=== PATIENT | female | born 1935 | race Caucasian/White ===

== ENCOUNTER 2016-12-02 07:43 | Inpatient (IN) | payer OTHER ==
[~2016-12-02] VITALS: Ht 165.1 cm; Wt 65.2 kg
[2016-12-02 09:14] LABS: EOSINOPHIL (%) 0.2 % (0-5); HEMATOCRIT 43.4 % (36.0-46.0); IMMATURE GRANULOCYTE (%) 0.2 % (0.0-0.7); IMMATURE GRANULOCYTE COUNT 0.2 K/uL; LYMPHOCYTE COUNT 1.2 K/uL (1.0-2.8); MCH 29.4 PG (29.0-34.0); MCHC 33.4 G/DL (30.0-36.0); MEAN PLAT.VOLUME 10.5 uM^3 (9.5-12.4); MONOCYTE (%) 5.8 % (3-12); MONOCYTE COUNT 0.6 K/uL (0-0.8); NEUTROPHIL (%) 80.4 % (45-76); NEUTROPHIL COUNT 7.6 K/uL (1.8-6.4); PLATELET COUNT 183 K/uL (156-360); RBC DIS.WIDTH-CV 12.9 % (11.8-14.6); RED BLOOD COUNT 4.93 M/uL (3.80-5.20); WHITE BLOOD COUNT 9.5 K/uL (4.1-10.2)
[2016-12-02 09:24] LABS: PROTHROMBIN TIME 10.5 (9.2-11.2); PTT 25.7 (25-32)
[2016-12-02 09:25] LABS: CHLORIDE 107 mEq/L (99-109); SODIUM 144 mEq/L (136-147)
[2016-12-02 09:27] LABS: GLUCOSE 137 mg/dL (70-99)
[2016-12-02 09:29] LABS: ANION GAP 10 MEQ/L (2-14); TOTAL BILIRUBIN 1.1 mg/dL (0.0-1.0)
[2016-12-02 09:31] LABS: ALKALINE PHOSPHATASE 74 IU/L (3-129); GFR ESTIMATE (CALCULATED) > 59 mL/min/
[2016-12-02 09:32] LABS: UREA NITROGEN (BUN) 28 mg/dL (9-23)
[2016-12-02 09:35] LABS: TROP-I INTERPRETATION NEGATIVE; TROPONIN-I < 0.01 ng/mL (0.0-0.30)
[2016-12-02 09:46] LABS: LIPASE > 4220 U/L (1.0-51.0)
[2016-12-02] MEDS ORDERED: PRINIVIL10 MG PO (11:12)
[2016-12-02] MEDS ORDERED: CELEBREX200 MG PO (11:13)
[2016-12-02] MEDS ORDERED: LORAZEPAM0.5 MG PO (11:13)
[2016-12-02] MEDS ORDERED: LIPITOR10 MG PO (11:13)
[2016-12-02] MEDS ORDERED: NEXIUM20 MG PO (11:14)
[2016-12-02] MEDS ORDERED: CALCIUM 500 MG1 EACH PO (11:14)
[2016-12-02] MEDS ORDERED: CLONAZEPAM1 MG PO (11:15)
[2016-12-02] MEDS ORDERED: CALCIUM 500 +1 EACH PO (12:19)
[2016-12-02] MEDS ORDERED: LORAZEPAM1 MG PO (12:20)
[2016-12-02] MEDS ORDERED: PRINIVIL20 MG PO (12:20)
[2016-12-02] MEDS ORDERED: MIRALAX255 GM PO (12:21)
[2016-12-02 20:00] VITALS: BP 156/64
[2016-12-02 23:51] VITALS: BP 133/67
[2016-12-03 04:00] VITALS: BP 130/66
[2016-12-03 06:39] LABS: HEMATOCRIT 44.4 % (36.0-46.0); MCH 29.8 PG (29.0-34.0); MCHC 32.7 G/DL (30.0-36.0); MCV 91.2 FL (83-99); MEAN PLAT.VOLUME 10.9 uM^3 (9.5-12.4); PLATELET COUNT 178 K/uL (156-360); RBC DIS.WIDTH-CV 13.4 % (11.8-14.6); RBC DIS.WIDTH-SD 44.1 % (39-53); RED BLOOD COUNT 4.87 M/uL (3.80-5.20); WHITE BLOOD COUNT 10.1 K/uL (4.1-10.2)
[2016-12-03 07:13] LABS: ALKALINE PHOSPHATASE 63 IU/L (3-129); ANION GAP 9 MEQ/L (2-14); CHLORIDE 107 MEQ/L (99-109); GFR ESTIMATE (CALCULATED) > 59 mL/min/; GLUCOSE 103 mg/dL (70-99); LIPASE 1519 U/L (1.0-51.0); POTASSIUM 3.5 MEQ/L (3.7-5.4); SAMPLE HEMOLYSIS CHECK 0; SAMPLE ICTERIC CHECK 0; SAMPLE LIPEMIA CHECK 0; SODIUM 145 MEQ/L (136-147); TOTAL BILIRUBIN 1.7 MG/DL (0.0-1.0); UREA NITROGEN (BUN) 27 mg/dL (9-23)
[2016-12-03 07:40] VITALS: BP 145/67
[2016-12-03 12:10] VITALS: BP 130/61
[2016-12-03 16:23] VITALS: BP 136/71
[2016-12-03 20:15] VITALS: BP 147/70
[2016-12-04] VITALS (7 sets, daily range): BP systolic 141–171; BP diastolic 66–78
[2016-12-04 08:33] LABS: HEMATOCRIT 40.8 % (36.0-46.0); MCH 30.3 PG (29.0-34.0); MCHC 33.3 G/DL (30.0-36.0); MCV 90.9 FL (83-99); MEAN PLAT.VOLUME 11.1 uM^3 (9.5-12.4); PLATELET COUNT 166 K/uL (156-360); RBC DIS.WIDTH-CV 13.1 % (11.8-14.6); RBC DIS.WIDTH-SD 43.6 % (39-53); RED BLOOD COUNT 4.49 M/uL (3.80-5.20); WHITE BLOOD COUNT 8.8 K/uL (4.1-10.2)
[2016-12-04 08:47] LABS: INTER. NORMALIZED RATIO 1.1; PROTHROMBIN TIME 10.7 (9.2-11.2); PTT 29.9 (25-32)
[2016-12-04 08:51] LABS: BASE EXCESS 0.1 mEq/L (-3 to +3); BICARBONATE 25.4 mEq/L (22-26); CARBOXY HGB 2.4 % (0-5); METHEMOGLOBIN 1.6 % (0-1.5); PCO2 43 mm Hg (35-45); PO2 74 mm Hg (80-100); pH 7.38 (7.35-7.45)
[2016-12-04 08:52] LABS: COMMENTS - BLOOD GASES A+C+; DEVICE NC; O2 FLOW 2 L/MIN; SITE RR; TOTAL RESP RATE 20 resp/min
[2016-12-04 09:33] LABS: ALKALINE PHOSPHATASE 55 IU/L (3-129); ANION GAP 9 MEQ/L (2-14); CHLORIDE 111 MEQ/L (99-109); GFR ESTIMATE (CALCULATED) > 59 mL/min/; POTASSIUM 3.7 MEQ/L (3.7-5.4); SAMPLE HEMOLYSIS CHECK 0; SAMPLE ICTERIC CHECK 0; SAMPLE LIPEMIA CHECK 0; SODIUM 147 MEQ/L (136-147); TOTAL BILIRUBIN 1.5 MG/DL (0.0-1.0); UREA NITROGEN (BUN) 22 mg/dL (9-23)
[2016-12-04 09:34] LABS: GLUCOSE 68 mg/dL (70-99)
[2016-12-05 04:00] VITALS: BP 170/71
[2016-12-05 06:53] LABS: HEMATOCRIT 34.3 % (36.0-46.0); MCH 29.7 PG (29.0-34.0); MCHC 33.5 G/DL (30.0-36.0); MCV 88.6 FL (83-99); MEAN PLAT.VOLUME 11.6 uM^3 (9.5-12.4); PLATELET COUNT 141 K/uL (156-360); RBC DIS.WIDTH-CV 12.9 % (11.8-14.6); RBC DIS.WIDTH-SD 41.3 % (39-53); RED BLOOD COUNT 3.87 M/uL (3.80-5.20); WHITE BLOOD COUNT 6.9 K/uL (4.1-10.2)
[2016-12-05 07:11] LABS: ALKALINE PHOSPHATASE 47 IU/L (3-129); ANION GAP 7 MEQ/L (2-14); CHLORIDE 107 MEQ/L (99-109); GFR ESTIMATE (CALCULATED) > 59 mL/min/; LIPASE 97 U/L (1.0-51.0); SAMPLE HEMOLYSIS CHECK 0; SAMPLE ICTERIC CHECK 0; SAMPLE LIPEMIA CHECK 0; SODIUM 142 MEQ/L (136-147); TOTAL BILIRUBIN 1.2 MG/DL (0.0-1.0); UREA NITROGEN (BUN) 16 mg/dL (9-23)
[2016-12-05 07:16] LABS: GLUCOSE 97 mg/dL (70-99); POTASSIUM 2.8 MEQ/L (3.7-5.4)
[2016-12-05 08:01] VITALS: BP 191/76
[2016-12-05 11:38] VITALS: BP 176/76
== END 2016-12-05 16:30 | disposition home or self-care (01) | DRG 440 ==
LOC: EME → EDBD 07:43 → EME 07:43 → EDOF 12:09 → 5SOUTH 12:09 → EDOF 12:29 → 5SOUTH 18:51
PROVIDERS: Emergency Medicine; Internal Medicine; Internal Medicine Gastroenterology; Physician Assistant
DX: K85.90 Acute pancreatitis without necrosis or infection, unspecified (principal); K81.1 Chronic cholecystitis; K76.0 Fatty (change of) liver, not elsewhere classified; E87.6 Hypokalemia; R74.0 Nonspecific elevation of levels of transaminase and lactic acid dehydrogenase [LDH]; D69.6 Thrombocytopenia, unspecified; E80.6 Other disorders of bilirubin metabolism; R79.89 Other specified abnormal findings of blood chemistry; I10 Essential (primary) hypertension; K21.9 Gastro-esophageal reflux disease without esophagitis; E78.2 Mixed hyperlipidemia; F41.9 Anxiety disorder, unspecified; M19.90 Unspecified osteoarthritis, unspecified site; Z85.038 Personal history of other malignant neoplasm of large intestine; Z90.49 Acquired absence of other specified parts of digestive tract; Z87.891 Personal history of nicotine dependence
CPT/HCPCS: 36600; 71010; 74183; 76705; 80053; 82803; 83690; 84484; 85025; 85027; 85610; 85730; 93005; 94799; 99281; 99285; J1170; J1644; J2270; J2405; J3480; J7030

== ENCOUNTER 2017-01-20 10:18 | Inpatient (IN) | payer OTHER ==
[2017-01-20] VITALS (10 sets, daily range): BP systolic 148–197; BP diastolic 69–105
[~2017-01-20] VITALS: Ht 165.1 cm; Wt 73.0 kg
[~2017-01-20 10:18] MED LIST: CALCIUM 500 +1 EACH PO; CALCIUM 500 MG1 EACH PO; CELEBREX200 MG PO; CLONAZEPAM1 MG PO; LIPITOR10 MG PO; LORAZEPAM0.5 MG PO; LORAZEPAM1 MG PO; MIRALAX255 GM PO; NEXIUM20 MG PO; PRINIVIL10 MG PO; PRINIVIL20 MG PO
[2017-01-20 11:27] LABS: BASOPHIL COUNT 0.1 K/uL (0-0.1); EOSINOPHIL (%) 0.6 % (0-5); HEMATOCRIT 39.4 % (36.0-46.0); IMMATURE GRANULOCYTE (%) 0.3 % (0.0-0.7); INSTRUMENT ABS NEUTROPHIL CT 4.3 K/uL; LYMPHOCYTE COUNT 1.2 K/uL (1.0-2.8); MCH 29.1 PG (29.0-34.0); MCHC 32.5 G/DL (30.0-36.0); MCV 89.5 FL (83-99); MEAN PLAT.VOLUME 10.1 uM^3 (9.5-12.4); MONOCYTE (%) 9.5 % (3-12); MONOCYTE COUNT 0.6 K/uL (0-0.8); NEUTROPHIL COUNT 4.3 K/uL (1.8-6.4); PLATELET COUNT 197 K/uL (156-360); RBC DIS.WIDTH-CV 13.3 % (11.8-14.6); RBC DIS.WIDTH-SD 44.1 % (39-53); WHITE BLOOD COUNT 6.2 K/uL (4.1-10.2)
[2017-01-20 11:36] LABS: CHLORIDE 109 mEq/L (99-109); POTASSIUM 3.9 mEq/L (3.7-5.4); SODIUM 145 mEq/L (136-147)
[2017-01-20 11:38] LABS: GLUCOSE 96 mg/dL (70-99); PROTHROMBIN TIME 10.4 (9.2-11.2); PTT 26.6 (25-32)
[2017-01-20 11:39] LABS: ANION GAP 10 MEQ/L (2-14)
[2017-01-20 11:42] LABS: GFR ESTIMATE (CALCULATED) > 59 mL/min/
[2017-01-20 11:43] LABS: UREA NITROGEN (BUN) 30 mg/dL (9-23)
[2017-01-20 11:49] LABS: TROP-I INTERPRETATION NEGATIVE; TROPONIN-I < 0.01 ng/mL (0.0-0.30)
[2017-01-20] MEDS ORDERED: CENTRAL VITE PO (12:25)
[2017-01-20] MEDS ORDERED: CALCIUM 500 +1 EACH PO (12:27)
[2017-01-20] MEDS ORDERED: HYDROCHLOROTHIA25 MG PO (12:27)
[2017-01-20] MEDS ORDERED: ALENDRONATE SOD35 MG PO (12:27)
[2017-01-20] MEDS ORDERED: MELOXICAM15 MG PO (12:28)
[2017-01-20 18:08] LABS: TROP-I INTERPRETATION NEGATIVE; TROPONIN-I 0.01 ng/mL (0.0-0.30)
[2017-01-21] VITALS: BP 147/63
[2017-01-21 01:23] LABS: INFLUENZA A VIRAL ANTIGEN NEGATIVE; INFLUENZA B VIRAL ANTIGEN NEGATIVE
[2017-01-21 01:41] LABS: TROP-I INTERPRETATION NEGATIVE; TROPONIN-I < 0.01 ng/mL (0.0-0.30)
[2017-01-21 03:18] VITALS: BP 173/80
[2017-01-21 08:44] VITALS: BP 184/90
[2017-01-21 11:11] LABS: CHLORIDE 103 mEq/L (99-109); POTASSIUM 3.5 mEq/L (3.7-5.4); SODIUM 142 mEq/L (136-147)
[2017-01-21 11:14] LABS: GLUCOSE 165 mg/dL (70-99)
[2017-01-21 11:15] LABS: ANION GAP 12 MEQ/L (2-14); TOTAL BILIRUBIN 6.3 mg/dL (0.0-1.0)
[2017-01-21 11:17] LABS: ALKALINE PHOSPHATASE 120 IU/L (3-129); GFR ESTIMATE (CALCULATED) 56 mL/min/
[2017-01-21 11:18] LABS: UREA NITROGEN (BUN) 29 mg/dL (9-23)
[2017-01-21 11:21] LABS: LIPASE > 1055 U/L (1.0-51.0)
[2017-01-21 11:36] LABS: AMYLASE 901 IU/L (1-118)
[2017-01-21 11:37] VITALS: BP 178/80
[2017-01-21 20:20] VITALS: BP 149/77
[2017-01-21 21:49] VITALS: BP 179/81
[2017-01-22 04:15] VITALS: BP 170/70
[2017-01-22 06:41] LABS: HEMATOCRIT 39.4 % (36.0-46.0); MCH 29.1 PG (29.0-34.0); MCHC 32.7 G/DL (30.0-36.0); MCV 88.9 FL (83-99); MEAN PLAT.VOLUME 10.6 uM^3 (9.5-12.4); PLATELET COUNT 161 K/uL (156-360); RBC DIS.WIDTH-CV 13.9 % (11.8-14.6); RBC DIS.WIDTH-SD 45.4 % (39-53); RED BLOOD COUNT 4.43 M/uL (3.80-5.20); WHITE BLOOD COUNT 7.7 K/uL (4.1-10.2)
[2017-01-22 07:04] LABS: ALKALINE PHOSPHATASE 81 IU/L (3-129); AMYLASE 226 IU/L (1-118); ANION GAP 7 MEQ/L (2-14); CHLORIDE 108 MEQ/L (99-109); DIRECT BILIRUBIN 2.1 mg/dL (0.0-0.3); GFR ESTIMATE (CALCULATED) > 59 mL/min/; GLUCOSE 144 mg/dL (70-99); LIPASE 277 U/L (1.0-51.0); POTASSIUM 3.1 MEQ/L (3.7-5.4); SAMPLE HEMOLYSIS CHECK 0; SAMPLE ICTERIC CHECK 1; SAMPLE LIPEMIA CHECK 0; SODIUM 144 MEQ/L (136-147); TOTAL BILIRUBIN 4.3 MG/DL (0.0-1.0); UREA NITROGEN (BUN) 33 mg/dL (9-23)
[2017-01-22 08:31] VITALS: BP 133/63
[2017-01-22 12:22] VITALS: BP 154/72
[2017-01-22 15:38] VITALS: BP 126/60
[2017-01-22 18:47] VITALS: BP 144/68
[2017-01-22 19:46] VITALS: BP 147/67
[2017-01-23 07:22] LABS: ALKALINE PHOSPHATASE 66 IU/L (3-129); ANION GAP 6 MEQ/L (2-14); CHLORIDE 115 MEQ/L (99-109); GFR ESTIMATE (CALCULATED) > 59 mL/min/; SAMPLE HEMOLYSIS CHECK 0; SAMPLE ICTERIC CHECK 0; SAMPLE LIPEMIA CHECK 0; SODIUM 145 MEQ/L (136-147); UREA NITROGEN (BUN) 26 mg/dL (9-23)
[2017-01-23 07:26] LABS: GLUCOSE 81 mg/dL (70-99); POTASSIUM 4.2 MEQ/L (3.7-5.4); TOTAL BILIRUBIN 2.4 MG/DL (0.0-1.0)
[2017-01-23 07:32] LABS: LIPASE 34 U/L (1.0-51.0)
[2017-01-23 07:34] VITALS: BP 140/75
[2017-01-23 07:50] LABS: HEMATOCRIT 34.3 % (36.0-46.0); MCH 29.4 PG (29.0-34.0); MCHC 32.1 G/DL (30.0-36.0); MCV 91.7 FL (83-99); MEAN PLAT.VOLUME 11.3 uM^3 (9.5-12.4); PLATELET COUNT 150 K/uL (156-360); RBC DIS.WIDTH-CV 14.2 % (11.8-14.6); RBC DIS.WIDTH-SD 48.2 % (39-53); RED BLOOD COUNT 3.74 M/uL (3.80-5.20); WHITE BLOOD COUNT 6.8 K/uL (4.1-10.2)
[2017-01-23 10:50] LABS: EOSINOPHIL (%) 0.3 % (0-5); IMMATURE GRANULOCYTE (%) 0.6 % (0.0-0.7); INSTRUMENT ABS NEUTROPHIL CT 5.7 K/uL; LYMPHOCYTE COUNT 0.5 K/uL (1.0-2.8); MONOCYTE (%) 6.4 % (3-12); MONOCYTE COUNT 0.4 K/uL (0-0.8); NEUTROPHIL (%) 84.7 % (45-76); NEUTROPHIL COUNT 5.7 K/uL (1.8-6.4)
[2017-01-23 13:09] VITALS: BP 192/87
[2017-01-23 14:49] VITALS: BP 165/79
[2017-01-23 17:16] VITALS: BP 190/93
[2017-01-23 22:48] VITALS: BP 183/77
[2017-01-24 06:54] LABS: EOSINOPHIL (%) 0 % (0-5); HEMATOCRIT 37.4 % (36.0-46.0); IMMATURE GRANULOCYTE (%) 0.5 % (0.0-0.7); INSTRUMENT ABS NEUTROPHIL CT 7.8 K/uL; LYMPHOCYTE COUNT 0.5 K/uL (1.0-2.8); MCH 28.9 PG (29.0-34.0); MCHC 32.4 G/DL (30.0-36.0); MCV 89.3 FL (83-99); MONOCYTE (%) 4.5 % (3-12); MONOCYTE COUNT 0.4 K/uL (0-0.8); NEUTROPHIL (%) 89.4 % (45-76); NEUTROPHIL COUNT 7.8 K/uL (1.8-6.4); PLATELET COUNT 185 K/uL (156-360); RBC DIS.WIDTH-CV 14.4 % (11.8-14.6); RBC DIS.WIDTH-SD 46.5 % (39-53); RED BLOOD COUNT 4.19 M/uL (3.80-5.20); WHITE BLOOD COUNT 8.7 K/uL (4.1-10.2)
[2017-01-24 07:25] LABS: ALKALINE PHOSPHATASE 87 IU/L (3-129); ANION GAP 11 MEQ/L (2-14); CHLORIDE 110 MEQ/L (99-109); GFR ESTIMATE (CALCULATED) > 59 mL/min/; LIPASE 7 U/L (1.0-51.0); SAMPLE HEMOLYSIS CHECK 0; SAMPLE ICTERIC CHECK 0; SAMPLE LIPEMIA CHECK 0; SODIUM 142 MEQ/L (136-147); UREA NITROGEN (BUN) 20 mg/dL (9-23)
[2017-01-24 07:30] LABS: GLUCOSE 109 mg/dL (70-99); TOTAL BILIRUBIN 1.3 MG/DL (0.0-1.0)
[2017-01-24 07:31] LABS: DIRECT BILIRUBIN 0.5 mg/dL (0.0-0.3)
[2017-01-24 07:55] VITALS: BP 169/74
[2017-01-24] MEDS ORDERED: AUGMENTIN875 MG PO (10:18)
[2017-01-24] MEDS ORDERED: TRAMADOL HCL50 MG PO (10:24)
[2017-01-24 15:48] VITALS: BP 148/82
[2017-01-24 22:52] VITALS: BP 148/82
[2017-01-25 06:15] LABS: HEMATOCRIT 36.9 % (36.0-46.0); MCH 29.1 PG (29.0-34.0); MCHC 33.3 G/DL (30.0-36.0); MCV 87.4 FL (83-99); MEAN PLAT.VOLUME 10.3 uM^3 (9.5-12.4); PLATELET COUNT 192 K/uL (156-360); RBC DIS.WIDTH-CV 14.5 % (11.8-14.6); RBC DIS.WIDTH-SD 46.3 % (39-53); RED BLOOD COUNT 4.22 M/uL (3.80-5.20); WHITE BLOOD COUNT 8.4 K/uL (4.1-10.2)
[2017-01-25 06:41] LABS: ALKALINE PHOSPHATASE 81 IU/L (3-129); DIRECT BILIRUBIN 0.3 mg/dL (0.0-0.3); TOTAL BILIRUBIN 1.1 MG/DL (0.0-1.0)
[2017-01-25 07:10] VITALS: BP 138/70
[2017-01-25 15:30] VITALS: BP 155/89
[2017-01-25 23:09] VITALS: BP 185/84
[2017-01-26 06:21] LABS: HEMATOCRIT 37.8 % (36.0-46.0); MCH 29.3 PG (29.0-34.0); MCHC 34.7 G/DL (30.0-36.0); MCV 84.6 FL (83-99); MEAN PLAT.VOLUME 10.8 uM^3 (9.5-12.4); PLATELET COUNT 200 K/uL (156-360); RBC DIS.WIDTH-SD 43.5 % (39-53); RED BLOOD COUNT 4.47 M/uL (3.80-5.20); WHITE BLOOD COUNT 9.6 K/uL (4.1-10.2)
[2017-01-26 06:42] LABS: ALKALINE PHOSPHATASE 90 IU/L (3-129); ANION GAP 11 MEQ/L (2-14); CHLORIDE 99 MEQ/L (99-109); GFR ESTIMATE (CALCULATED) > 59 mL/min/; GLUCOSE 112 mg/dL (70-99); SAMPLE HEMOLYSIS CHECK 0; SAMPLE ICTERIC CHECK 0; SAMPLE LIPEMIA CHECK 0; SODIUM 136 MEQ/L (136-147); UREA NITROGEN (BUN) 11 mg/dL (9-23)
[2017-01-26 06:47] LABS: TOTAL BILIRUBIN 1.6 MG/DL (0.0-1.0)
[2017-01-26 07:00] VITALS: BP 135/79
[2017-01-26 08:42] LABS: MAGNESIUM 1.9 mg/dl (1.3-2.7)
[2017-01-26 10:55] LABS: ADD MIUA? YES; BILIRUBIN NEGATIVE; BLOOD SMALL; COLOR AMBER ((YELLOW)); GLUCOSE (STRIP) NEGATIVE; KETONES NEGATIVE; LEUKOCYTES LARGE; NITRITE NEGATIVE; PROTEIN (STRIP) NEGATIVE; SPECIFIC GRAVITY 1.014 (1.000-1.030); UROBILINOGEN 0.2 MG/DL (0.2-1.0)
[2017-01-26 11:14] LABS: EPITHELIAL CELLS 1+ /HPF; MUCUS NONE SEEN /LPF; RED BLOOD CELLS NONE SEEN /HPF (0-5)
[2017-01-26 11:15] LABS: BACTERIA 2+ /HPF; CASTS NONE SEEN /LPF; CRYSTALS PRESENT; UCUL ADDED? YES
[2017-01-26 11:16] LABS: AMORPHOUS URATES CRYSTALS FEW
[2017-01-26 15:39] VITALS: BP 141/85
[2017-01-27 00:18] VITALS: BP 173/76
[2017-01-27 06:40] VITALS: BP 166/77
[2017-01-27 06:49] LABS: ALKALINE PHOSPHATASE 88 IU/L (3-129); ANION GAP 11 MEQ/L (2-14); CHLORIDE 100 MEQ/L (99-109); GFR ESTIMATE (CALCULATED) > 59 mL/min/; GLUCOSE 88 mg/dL (70-99); POTASSIUM 3.4 MEQ/L (3.7-5.4); SAMPLE HEMOLYSIS CHECK 0; SAMPLE ICTERIC CHECK 0; SAMPLE LIPEMIA CHECK 0; SODIUM 137 MEQ/L (136-147); TOTAL BILIRUBIN 1.1 MG/DL (0.0-1.0); UREA NITROGEN (BUN) 12 mg/dL (9-23)
[2017-01-27 07:16] LABS: HEMATOCRIT 36.3 % (36.0-46.0); MCH 29.3 PG (29.0-34.0); MCHC 34.2 G/DL (30.0-36.0); MCV 85.8 FL (83-99); MEAN PLAT.VOLUME 10.8 uM^3 (9.5-12.4); PLATELET COUNT 215 K/uL (156-360); RBC DIS.WIDTH-CV 14.4 % (11.8-14.6); RED BLOOD COUNT 4.23 M/uL (3.80-5.20); WHITE BLOOD COUNT 8.6 K/uL (4.1-10.2)
[2017-01-27] MEDS ORDERED: CEFDINIR300 MG PO (10:24)
== END 2017-01-27 15:53 | disposition home or self-care (01) | DRG 417 ==
LOC: EME → EDBD 10:18 → 5WEST 12:30 → EDOF 12:30 → 5WEST 14:35 → 5EAST 01-21 16:29 → 5WEST 01-21 16:29 → 4EAST 01-21 16:29 → 5WEST 01-21 16:29 → 4EAST 01-21 21:52 → 5EAST 01-22 19:40
PROVIDERS: Emergency Medicine; Hospitalist; Internal Medicine; Internal Medicine Cardiovascular Disease; Internal Medicine Gastroenterology
PROC: 0FT44ZZ Resection of Gallbladder, Percutaneous Endoscopic Approach (ICD-10-PCS; principal; 2017-01-23)
DX: K81.0 Acute cholecystitis (principal); K85.90 Acute pancreatitis without necrosis or infection, unspecified; I10 Essential (primary) hypertension; E78.5 Hyperlipidemia, unspecified; R00.0 Tachycardia, unspecified; R10.13 Epigastric pain; R94.5 Abnormal results of liver function studies; R74.0 Nonspecific elevation of levels of transaminase and lactic acid dehydrogenase [LDH]; R07.9 Chest pain, unspecified; K21.9 Gastro-esophageal reflux disease without esophagitis; F41.9 Anxiety disorder, unspecified; Z87.891 Personal history of nicotine dependence; Z85.038 Personal history of other malignant neoplasm of large intestine
CPT/HCPCS: 71010; 74181; 76705; 80048; 80053; 80076; 81003; 82150; 82248; 83690; 83735; 84484; 85025; 85027; 85610; 85730; 86850; 86900; 86901; 87077; 87086; 87186; 87502; 88304; 93005; 94799; 99281; 99284; C9113; G0378; J0131; J0330; J0360; J1100; J1650; J2270; J2405; J2710; J3010; J3480; J7042; J7050; S0074

== ENCOUNTER 2017-02-21 14:05 | Emergency (ER) | payer OTHER ==
[~2017-02-21] VITALS: Ht 165.1 cm; Wt 61.8 kg
[~2017-02-21 14:05] MED LIST changes: +ALENDRONATE SOD35 MG PO; +AUGMENTIN875 MG PO; +CEFDINIR300 MG PO; +CENTRAL VITE PO; +HYDROCHLOROTHIA25 MG PO; +MELOXICAM15 MG PO; +TRAMADOL HCL50 MG PO
[2017-02-21 15:11] LABS: HEMATOCRIT 42.6 % (36.0-46.0); MCH 28.5 PG (29.0-34.0); MCHC 33.1 G/DL (30.0-36.0); MCV 86.1 FL (83-99); PLATELET COUNT 245 K/uL (156-360); RBC DIS.WIDTH-CV 14.2 % (11.8-14.6); RBC DIS.WIDTH-SD 44.8 % (39-53); RED BLOOD COUNT 4.95 M/uL (3.80-5.20); WHITE BLOOD COUNT 8.3 K/uL (4.1-10.2)
[2017-02-21 15:18] LABS: CHLORIDE 103 mEq/L (99-109); SODIUM 142 mEq/L (136-147)
[2017-02-21 15:21] LABS: GLUCOSE 170 mg/dL (70-99)
[2017-02-21 15:22] LABS: ANION GAP 13 MEQ/L (2-14)
[2017-02-21 15:23] LABS: TOTAL BILIRUBIN 1.7 mg/dL (0.0-1.0)
[2017-02-21 15:24] LABS: ALKALINE PHOSPHATASE 84 IU/L (3-129); GFR ESTIMATE (CALCULATED) 38 mL/min/
[2017-02-21 15:25] LABS: UREA NITROGEN (BUN) 39 mg/dL (9-23)
[2017-02-21 15:28] LABS: LIPASE 10 U/L (1.0-51.0)
[2017-02-21 18:33] LABS: DIRECT BILIRUBIN 0.6 mg/dL (0.0-0.3)
[2017-02-21 18:46] LABS: ADD MIUA? YES; BILIRUBIN NEGATIVE; BLOOD NEGATIVE; COLOR AMBER ((YELLOW)); GLUCOSE (STRIP) NEGATIVE; KETONES 20; LEUKOCYTES MODERATE; NITRITE NEGATIVE; PROTEIN (STRIP) 30; SPECIFIC GRAVITY 1.019 (1.000-1.030); UROBILINOGEN 0.2 MG/DL (0.2-1.0)
[2017-02-21 18:54] LABS: BACTERIA NONE SEEN /HPF; EPITHELIAL CELLS RARE /HPF; MUCUS TRACE /LPF; RED BLOOD CELLS 0-5 /HPF (0-5); UCUL ADDED? NO; WHITE BLOOD CELLS 20-30 /HPF (0-5)
[2017-02-21] MEDS ORDERED: ZOFRAN ODT4 MG PO (19:28)
[2017-02-21 20:26] VITALS: BP 110/60
== END 2017-02-21 20:31 ==
LOC: EME 14:05
DX: R11.0 Nausea (principal); R63.4 Abnormal weight loss; E86.0 Dehydration; T40.4X5A Adverse effect of other synthetic narcotics, initial encounter; Z68.22 Body mass index [BMI] 22.0-22.9, adult; Z98.890 Other specified postprocedural states; Z90.49 Acquired absence of other specified parts of digestive tract; I10 Essential (primary) hypertension; Z85.038 Personal history of other malignant neoplasm of large intestine
CPT/HCPCS: 74176; 80053; 81003; 82248; 83605; 83690; 85027; 87086; 93005; 99281; 99285; J7030